=== PATIENT | male | born 1950 | race Caucasian/White ===

== ENCOUNTER 2021-12-14 09:34 | Inpatient (IN) | payer MEDICARE, MEDICAID ==
[~2021-12-14] VITALS: Ht 182.9 cm; Wt 39.9 kg
[2021-12-14 10:04] LABS: HEMOGLOBIN 12.7 gm/dl (14.0-17.5); RED BLOOD COUNT 4.58 M/UL (4.20-5.50); WHITE BLOOD COUNT 18.5 K/UL (4.5-11.0)
[2021-12-14 10:40] LABS: BUN/CREATININE RATIO 23 (0-10)
[2021-12-14] MEDS ORDERED: FENTANYL1 EACH TD (14:37)
[2021-12-14] MEDS ORDERED: PROAIR HFA8.5 GM INH (14:38)
[2021-12-14] MEDS ORDERED: COLACE 100MG C100 MG PO (14:42)
[2021-12-14] MEDS ORDERED: CIPRO500 MG PO (14:42)
[2021-12-14] MEDS ORDERED: HYDROCODON-ACE1 EAC2 PO (14:46)
[2021-12-14] MEDS ORDERED: LUBIPROSTONE24 MCG PO (14:46)
[2021-12-14] MEDS ORDERED: ZOFRAN ODT 4 MG4 MG TL (14:48)
[2021-12-14] MEDS ORDERED: OXYCODONE HCL10 MG PO (14:49)
[2021-12-14] MEDS ORDERED: PROTONIX40 MG PO (14:50)
[2021-12-14] MEDS ORDERED: PROMETHAZINE HC25 M1 PO (14:50)
[2021-12-14] MEDS ORDERED: SERTRALINE HCL100 MG PO (14:53)
[2021-12-14] MEDS ORDERED: PYRIDOSTIGMINE60 MG PO (14:53)
[2021-12-14] MEDS ORDERED: STIOLTO RESPIMAT4 GM PO (14:54)
[2021-12-14] MEDS ORDERED: FERROUS SULFAT325 MG PO (14:55)
[2021-12-14] MEDS ORDERED: VITAMIN C500 M4 PO (14:56)
[2021-12-14] MEDS ORDERED: VITAMIN D350 MC3 PO (14:57)
[2021-12-15 06:45] LABS: BUN/CREATININE RATIO 31 (0-10)
[2021-12-15 07:00] LABS: WHITE BLOOD COUNT 14.1 K/UL (4.5-11.0)
[2021-12-15 07:02] LABS: HEMOGLOBIN 9.8 gm/dl (14.0-17.5); RED BLOOD COUNT 3.5 M/UL (4.20-5.50)
[2021-12-16 06:52] LABS: HEMOGLOBIN 9.7 gm/dl (14.0-17.5); RED BLOOD COUNT 3.52 M/UL (4.20-5.50); WHITE BLOOD COUNT 16.7 K/UL (4.5-11.0)
[2021-12-16 07:18] LABS: BUN/CREATININE RATIO 15 (0-10)
[2021-12-17 06:19] LABS: RED BLOOD COUNT 3.83 M/UL (4.20-5.50)
[2021-12-17 06:43] LABS: WHITE BLOOD COUNT 45.7 K/UL (4.5-11.0)
[2021-12-17 06:52] LABS: BUN/CREATININE RATIO 17 (0-10)
[2021-12-17 07:27] LABS: HEMOGLOBIN 11.1 gm/dl (14.0-17.5); RED BLOOD COUNT 3.92 M/UL (4.20-5.50)
[2021-12-17 07:34] LABS: WHITE BLOOD COUNT 45.6 K/UL (4.5-11.0)
[2021-12-18 04:11] LABS: HEMOGLOBIN 9.6 gm/dl (14.0-17.5)
[2021-12-18 04:13] LABS: RED BLOOD COUNT 3.42 M/UL (4.20-5.50); WHITE BLOOD COUNT 41.6 K/UL (4.5-11.0)
[2021-12-18 04:49] LABS: BUN/CREATININE RATIO 29 (0-10)
[2021-12-18 09:14] LABS: HIV AB/P24 AG SCREEN Non Reactive (Non Reactive)
[2021-12-19 05:48] LABS: HEMOGLOBIN 10.1 gm/dl (14.0-17.5); RED BLOOD COUNT 3.52 M/UL (4.20-5.50)
[2021-12-19 05:51] LABS: WHITE BLOOD COUNT 35.9 K/UL (4.5-11.0)
[2021-12-19 06:14] LABS: BUN/CREATININE RATIO 35 (0-10)
[2021-12-19 08:14] LABS: % CD 4 POS. LYMPH. 38.6 % (30.8-58.5); ABSOLUTE CD 4 HELPER 309 /uL (359-1519); BASO (ABSOLUTE) 0.1 x10E3/uL (0.0-0.2); BASOS 0 % (Not Estab.); EOS 0 % (Not Estab.); HEMOGLOBIN 9.7 g/dL (13.0-17.7); IMMATURE GRANS (ABS) 0.7 x10E3/uL (0.0-0.1); IMMATURE GRANULOCYTES 2 % (Not Estab.); LYMPHS 2 % (Not Estab.); LYMPHS (ABSOLUTE) 0.8 x10E3/uL (0.7-3.1); MCH 28.7 pg (26.6-33.0); MCHC 33.4 g/dL (31.5-35.7); MCV 86 fL (79-97); MONOCYTES 3 % (Not Estab.); MONOCYTES(ABSOLUTE) 1.1 x10E3/uL (0.1-0.9); NEUTROPHILS 93 % (Not Estab.); NEUTROPHILS (ABSOLUTE) 39.8 x10E3/uL (1.4-7.0); PLATELETS 312 x10E3/uL (150-450); RBC 3.38 x10E6/uL (4.14-5.80); RDW 17.4 % (11.6-15.4); WBC 42.5 x10E3/uL (3.4-10.8)
[2021-12-19 15:14] LABS: ORGANISM ID Not indicated. (.); SPECIMEN SOURCE Urine (.); STREPTOCOCCUS PNEUMONIAE AG Negative (Negative)
[2021-12-20 04:31] LABS: HEMOGLOBIN 9.2 gm/dl (14.0-17.5); RED BLOOD COUNT 3.25 M/UL (4.20-5.50); WHITE BLOOD COUNT 28.8 K/UL (4.5-11.0)
[2021-12-20 04:58] LABS: BUN/CREATININE RATIO 32 (0-10)
--- NOTE | 2021-12-20 19:14 | NUR ---
DR MORA CALLED AND REQUEST TO SPEAK WITH PT AND TOMORROW TO DISCUSS CONTINUING TREATMENT. INFORMED PT TO LET KNOW THAT THE MD WANTED TO SPEAK WITH HER IN AM. VERBALIZED UNDERSTANDING.
[2021-12-21 04:29] LABS: HEMOGLOBIN 10.8 gm/dl (14.0-17.5); RED BLOOD COUNT 3.81 M/UL (4.20-5.50); WHITE BLOOD COUNT 15.3 K/UL (4.5-11.0)
[2021-12-21 04:40] LABS: BUN/CREATININE RATIO 38 (0-10)
[2021-12-22 05:29] LABS: HEMOGLOBIN 10.6 gm/dl (14.0-17.5); RED BLOOD COUNT 3.75 M/UL (4.20-5.50); WHITE BLOOD COUNT 18.9 K/UL (4.5-11.0)
[2021-12-22 08:06] LABS: BUN/CREATININE RATIO 58 (0-10)
[2021-12-22 19:56] LABS: HEMOGLOBIN 9.7 gm/dl (14.0-17.5); RED BLOOD COUNT 3.53 M/UL (4.20-5.50)
[2021-12-22 20:16] LABS: BUN/CREATININE RATIO 69 (0-10)
[2021-12-23 04:48] LABS: HEMOGLOBIN 8.9 gm/dl (14.0-17.5)
[2021-12-23 04:51] LABS: RED BLOOD COUNT 3.17 M/UL (4.20-5.50)
[2021-12-23 05:01] LABS: BUN/CREATININE RATIO 53 (0-10)
[2021-12-23 14:18] LABS: BUN/CREATININE RATIO 59 (0-10)
[2021-12-24 05:30] LABS: BUN/CREATININE RATIO 80 (0-10)
[2021-12-24 17:13] LABS: HISTOPLASMA MYCELIAL ID AB. Negative (Negative)
[2021-12-25 05:03] LABS: BUN/CREATININE RATIO 100 (0-10)
[2021-12-25 08:58] LABS: HEMOGLOBIN 7.3 gm/dl (14.0-17.5)
[2021-12-25 09:43] LABS: RED BLOOD COUNT 2.61 M/UL (4.20-5.50)
[2021-12-25 09:44] LABS: WHITE BLOOD COUNT 38.2 K/UL (4.5-11.0)
[2021-12-25 13:17] LABS: BUN/CREATININE RATIO 103 (0-10)
[2021-12-26 04:50] LABS: BUN/CREATININE RATIO 96 (0-10)
[2021-12-26 09:09] LABS: HEMOGLOBIN 8.2 gm/dl (14.0-17.5)
[2021-12-26 09:12] LABS: RED BLOOD COUNT 2.91 M/UL (4.20-5.50)
[2021-12-26 09:14] LABS: WHITE BLOOD COUNT 32.8 K/UL (4.5-11.0)
[2021-12-27 04:06] LABS: BUN/CREATININE RATIO 86 (0-10)
[2021-12-28 20:11] LABS: FUNGITELL, SERUM 38 pg/mL (<80)
== END 2021-12-28 03:20 | disposition expired | DRG 335 ==
LOC: ER1 09:34 → CDU 13:18 → MED SURG 4 13:18 → CDU 13:18 → MED SURG 4 13:45 → CCU 12-22 17:23 → 2 EAST 12-24 10:46 → CCU 12-28 03:20
PROVIDERS: Emergency Medicine; Internal Medicine; Internal Medicine Critical Care Medicine; Internal Medicine Infectious Disease; Internal Medicine Pulmonary Disease; Physician Assistant; Surgery; ADMIT Internal Medicine
PROC: 5A0955A Assistance with Respiratory Ventilation, Greater than 96 Consecutive Hours, High Flow/Velocity Cannula (ICD-10-PCS; 2021-12-16)
PROC: 0DN80ZZ Release Small Intestine, Open Approach (ICD-10-PCS; 2021-12-22)
PROC: 0DH63UZ Insertion of Feeding Device into Stomach, Percutaneous Approach (ICD-10-PCS; 2021-12-22)
PROC: 06HY33Z Insertion of Infusion Device into Lower Vein, Percutaneous Approach (ICD-10-PCS; 2021-12-22)
PROC: 0BH18EZ Insertion of Endotracheal Airway into Trachea, Via Natural or Artificial Opening Endoscopic (ICD-10-PCS; 2021-12-22)
PROC: 5A1945Z Respiratory Ventilation, 24-96 Consecutive Hours (ICD-10-PCS; 2021-12-22)
PROC: 3E0336Z Introduction of Nutritional Substance into Peripheral Vein, Percutaneous Approach (ICD-10-PCS; principal; 2021-12-22 15:00)
PROC: 02HV33Z Insertion of Infusion Device into Superior Vena Cava, Percutaneous Approach (ICD-10-PCS; 2021-12-23)
PROC: 0B9G8ZX Drainage of Left Upper Lung Lobe, Via Natural or Artificial Opening Endoscopic, Diagnostic (ICD-10-PCS; 2021-12-23)
PROC: 0B9M8ZX Drainage of Bilateral Lungs, Via Natural or Artificial Opening Endoscopic, Diagnostic (ICD-10-PCS; 2021-12-23)
PROC: 0B948ZZ Drainage of Right Upper Lobe Bronchus, Via Natural or Artificial Opening Endoscopic (ICD-10-PCS; 2021-12-23)
PROC: 0B968ZZ Drainage of Right Lower Lobe Bronchus, Via Natural or Artificial Opening Endoscopic (ICD-10-PCS; 2021-12-23)
PROC: 3E0 Administration, Physiological Systems and Anatomical Regions, Introduction (ICD-10-PCS; 2021-12-24)
PROC: 3E03329 Introduction of Other Anti-infective into Peripheral Vein, Percutaneous Approach (ICD-10-PCS; 2021-12-24)
PROC: 5A0935A Assistance with Respiratory Ventilation, Less than 24 Consecutive Hours, High Flow/Velocity Cannula (ICD-10-PCS; 2021-12-26)
PROC: 5A09357 Assistance with Respiratory Ventilation, Less than 24 Consecutive Hours, Continuous Positive Airway Pressure (ICD-10-PCS; 2021-12-27)
DX: K56.609 Unspecified intestinal obstruction, unspecified as to partial versus complete obstruction (principal); E43 Unspecified severe protein-calorie malnutrition; Z20.822 Contact with and (suspected) exposure to COVID-19; J96.21 Acute and chronic respiratory failure with hypoxia; J96.22 Acute and chronic respiratory failure with hypercapnia; J15.1 Pneumonia due to Pseudomonas; J69.0 Pneumonitis due to inhalation of food and vomit; A41.52 Sepsis due to Pseudomonas; A41.89 Other specified sepsis; J15.0 Pneumonia due to Klebsiella pneumoniae; R65.21 Severe sepsis with septic shock; E87.3 Alkalosis; J44.0 Chronic obstructive pulmonary disease with (acute) lower respiratory infection; E87.0 Hyperosmolality and hypernatremia; Z68.1 Body mass index [BMI] 19.9 or less, adult; Z16.24 Resistance to multiple antibiotics; Z66 Do not resuscitate; R62.7 Adult failure to thrive; J60 Coalworker's pneumoconiosis; D63.8 Anemia in other chronic diseases classified elsewhere; L89.152 Pressure ulcer of sacral region, stage 2; D72.829 Elevated white blood cell count, unspecified; E83.42 Hypomagnesemia; E16.2 Hypoglycemia, unspecified; F43.9 Reaction to severe stress, unspecified; E87.6 Hypokalemia; Z99.81 Dependence on supplemental oxygen; Z98.890 Other specified postprocedural states; Z85.028 Personal history of other malignant neoplasm of stomach; Z98.42 Cataract extraction status, left eye; Z80.0 Family history of malignant neoplasm of digestive organs; Z87.01 Personal history of pneumonia (recurrent); Z92.21 Personal history of antineoplastic chemotherapy; K56.7 Ileus, unspecified; Z51.5 Encounter for palliative care
CPT/HCPCS: ECHO; 36415; 36600; 71045; 71250; 71275; 74018; 74022; 80048; 80053; 80202; 80307; 81001; 82550; 82553; 82803; 82947; 82962; 83605; 83690; 83735; 83880; 84100; 84132; 84484; 85025; 85027; 85610; 85730; 86140; 86361; 86612; 86698; 87015; 87040; 87070; 87077; 87081; 87116; 87186; 87205; 87206; 87278; 87389; 87899; 93005; 93306; 94002; 94003; 94640; 94660; 94664; 94760; 96374; 97110-GP-CQ; 97116-GP-CQ; 97161; 97166; 99285; A6212; C1751; C9113; G0480; J0360; J1100; J1610; J1644; J1940; J2001; J2060; J2250; J2270; J2370; J2405; J2543; J2550; J2704; J2765; J3010; J3370; J3465; J3475; J3480; J7030; J7070; J7120; P9045; Q9963; Q9967; U0002